=== PATIENT | male | born 1965 | race Caucasian/White ===

== ENCOUNTER 2016-07-21 10:21 | Emergency (ER) | payer OTHER ==
[2016-07-21 10:26] VITALS: RESP 16; TEMP 97.5; O2SAT 98
--- NOTE | 2016-07-21 10:46 | CPEKG ---
Heart Rate: 61 RR Interval: 984 P-R Interval: 164 QRSD Interval: 96 QT Interval: 408 QTC Interval: 411 P Orange: 65 QRS Orange: 37 T Wave Orange: 32 EKG Severity - NORMAL ECG - EKG Impression: SINUS RHYTHM Electronically Signed By: Bert Frank 21-Jul-2016 23:12:00
[2016-07-21] MEDS ORDERED: NS 1,000 ML IV ONE (10:47)
[2016-07-21 10:55] LABS: % IMMATURE GRANULYOCYTES 0.2 % (0.0-1.1); ABSOLUTE IMMATURE GRANULOCYTES 0.01 10^3/uL (0.00-0.10); ADD DIFF? NO; ADD MORPH? NO; ADD SCAN? NO; ATYPICAL LYMPHOCYTE FLAG 10 (0-99); FRAGMENT RBC FLAG 0 (0-99); HEMATOCRIT 44.9 % (40.0-51.0); HEMOGLOBIN 15.4 g/dL (13.7-17.5); LEFT SHIFT FLG 0 (0-99); LIPEMIA HEMOLYSIS FLAG 90 (0-99); MEAN CELL HEMOGLOBIN 31.8 pg (27.9-34.1); MEAN CELL HEMOGLOBIN CONCENTR. 34.3 g/dL (32.4-36.7); MEAN CELL VOLUME 92.6 fL (81.5-99.8); MEAN PLATELET VOLUME 11.2 fL (8.7-11.7); PLATELET CLUMPS FLAG 10 (0-99); PLATELET COUNT 204 10^3/uL (150-400); RED BLOOD CELL COUNT 4.85 10^6/uL (4.40-6.38); RED CELL DISTRIBUTION WIDTH 12.7 % (11.5-15.2)
--- NOTE | 2016-07-21 10:59 | EDPHY ---
H & P Stated Complaint: NAUSEA/FAINTED- STILL LIGHTHEADED HPI/ROS: CHIEF COMPLAINT: Syncope HISTORY OF PRESENT ILLNESS: patient was ambulating at work today when he notes the sudden onset of loss of conscious. He says he felt a little nauseated before happen, he remembers starting to fall and does not remember the exact details. He says he struck his head on the floor. there were several coworkers present. EMS was called. He was feeling much better by the time the EMS arrived and was wanting to refuse transport, but his coworkers recommended he come in. He has had no chest pain prior or post event. He had no shortness of breath. No recent illness. No history of cardiac disease or conduction delays. NO other associated complaints or modifying factors for this. He does have some mild "cloudy thought process," but no other complaints. REVIEW OF SYSTEMS: Ten systems reviewed and are negative unless otherwise noted in the HPI EXAMINATION General Appearance: Alert, no distress Head: normocephalic, atraumatic Eyes: Pupils equal and round, no conjunctival pallor or injection . No nystagmus. EOMs intact. ENT, Mouth: Mucous membranes moist . Uvula midline. NO erythema or edema. Neck: Normal inspection, supple, non-tender . Painless range of motion all planes. Respiratory: Lungs are clear to auscultation . No wheezing, rhonchi or crackles. Cardiovascular: Regular rate and rhythm . No murmur. Pulses intact distally with symmetric radial, DP and PT pulses are 2+. Gastrointestinal: Abdomen is soft and nontender Back: non-tender, no bony abnormalities Neurological: A&O, Cranial nerves 2-12 grossly intact. Strength is 5/5 in all limbs. Sensory intact. NO focal deficits. NO pronator drift. No dysmetria. Skin: Warm and dry, no rash Extremities: Nontender, no pedal edema Psychiatric: Mood and affect normal DIFFERENTIAL DIAGNOSES: Including but not limited to Vasovagal syncope, syncope, dehydration conduction delay MDM: 10:55 a.m. 1st episode of syncope for the patient. THis occurred just prior to arrival. SInce then he has had no recurrence. He has had no headache, confusion, chest pain or shortness of breath. NO incontinence or injury to the tongue. No history of seizure disorder. No history of coronary artery or cardiac diagnosis. His vital signs are within normal limits and he is feeling much better at this time. Laboratory studies are pending. EKG is unremarkable with normal sinus rhythm. 12:45 p.m. syncope without any subsequent syncope. Laboratory studies normal. He has ambulated twice in the emergency department without complication. Discharged home with follow up with his primary care physician. PAtient is comfortable with this plan and discharged home stable condition, ambulatory without assistance. EKG: Interpreted by Dr. Rebolledo SUPERVISION: Independently evaluated Source: Patient, Family Exam Limitations: No limitations - Personal History Current Tetanus/Diphtheria Vaccine: Unsure Current Tetanus Diphtheria and Acellular Pertussis (TDAP): Unsure - Medical/Surgical History Hx Asthma: No Hx Chronic Respiratory Disease: No Hx Diabetes: No Hx Cardiac Disease: No Hx Renal Disease: No Hx Cirrhosis: No Hx Alcoholism: No Hx HIV/AIDS: No Hx Splenectomy or Spleen Trauma: No Other PMH: seasonal allergies, melanoma removed lt arm - Social History Smoking Status: Never smoked Constitutional: Initial Vital Signs Temperature (C) 97.5 F 07/21/16 10:23 Heart Rate 67 07/21/16 10:23 Respiratory Rate 16 07/21/16 10:23 Blood Pressure 123/82 H 07/21/16 10:23 O2 Sat (%) 98 07/21/16 10:23 O2 Delivery Mode Room Air Allergies/Adverse Reactions: No Known Allergies Allergy (Unverified 06/17/13 10:14) Home Medications: Medication Instructions Recorded NK [No Known Home Meds] 07/21/16 Medical Decision Making - Data Points Laboratory Results: Laboratory Results 07/21/16 10:42 07/21/16 10:42 07/21/16 07/21/16 07/21/16 10:42 10:42 10:42 WBC 5.98 10^3/uL 10^3/uL (3.80-9.50) RBC 4.85 10^6/uL 10^6/uL (4.40-6.38) Hgb 15.4 g/dL g/dL (13.7-17.5) Hct 44.9 % % (40.0-51.0) MCV 92.6 fL fL (81.5-99.8) MCH 31.8 pg pg (27.9-34.1) MCHC 34.3 g/dL g/dL (32.4-36.7) RDW 12.7 % % (11.5-15.2) Plt Count 204 10^3/uL 10^3/uL (150-400) MPV 11.2 fL fL (8.7-11.7) Neut % (Auto) 69.0 % % (39.3-74.2) Lymph % (Auto) 22.6 % % (15.0-45.0) [place] % (Auto) 6.5 % % (4.5-13.0) Eos % (Auto) 1.0 % % (0.6-7.6) Baso % (Auto) 0.7 % % (0.3-1.7) Nucleat RBC Rel Count 0.0 % % (0.0-0.2) Absolute Neuts (auto) 4.13 10^3/uL 10^3/uL (1.70-6.50) Absolute Lymphs (auto) 1.35 10^3/uL 10^3/uL (1.00-3.00) Absolute Monos (auto) 0.39 10^3/uL 10^3/uL (0.30-0.80) Absolute Eos (auto) 0.06 10^3/uL 10^3/uL (0.03-0.40) Absolute Basos (auto) 0.04 10^3/uL 10^3/uL (0.02-0.10) Absolute Nucleated RBC 0.00 10^3/uL 10^3/uL (0-0.01) Immature Gran % 0.2 % % (0.0-1.1) Immature Gran # 0.01 10^3/uL 10^3/uL (0.00-0.10) PT 13.0 SEC SEC (12.0-15.0) INR 0.99 (0.83-1.16) APTT 25.8 SEC SEC (23.0-38.0) Sodium 138 mEq/L mEq/L (134-144) Potassium 4.4 mEq/L mEq/L (3.5-5.2) Chloride 104 mEq/L mEq/L (97-110) Carbon Dioxide 25 mEq/l mEq/l (22-31) Anion Gap 9 mEq/L mEq/L (8-16) BUN 20 mg/dL mg/dL (7-23) Creatinine 1.2 mg/dL mg/dL (0.7-1.3) Estimated GFR > 60 Glucose 90 mg/dL mg/dL (70-100) Calcium 9.5 mg/dL mg/dL (8.5-10.4) Troponin I < 0.012 ng/mL ng/mL (0-0.034) Medications Given: Discontinued Medications Sodium Chloride (Ns) 1,000 mls @ 0 mls/hr IV ONCE ONE PRN Reason: Wide Open Stop: 07/21/16 10:48 Last Admin: 07/21/16 10:49 Dose: 1,000 mls Departure - Departure Disposition: Home, Routine, Self-Care Clinical Impression: Syncope and collapse Condition: Good Instructions: Syncope (ED) Additional Instructions: Follow-up with primary care physician to discuss cardiology referral. Return to the ER for return of syncope Referrals: Kelle Calles, PAC [Primary Care Provider] - As per Instructions
[2016-07-21 11:03] LABS: INR 0.99 (0.83-1.16)
[2016-07-21 11:04] LABS: APTT 25.8 SEC (23.0-38.0)
[2016-07-21 11:09] LABS: ANION GAP 9 mEq/L (8-16); CALCIUM 9.5 mg/dL (8.5-10.4); CARBON DIOXIDE 25 mEq/l (22-31); CHLORIDE 104 mEq/L (97-110); CREATININE 1.2 mg/dL (0.7-1.3); GLOMERULAR FILTRATION RATE > 60; GLUCOSE 90 mg/dL (70-100); POTASSIUM 4.4 mEq/L (3.5-5.2); SODIUM 138 mEq/L (134-144)
[2016-07-21 11:20] LABS: TROPONIN I < 0.012 ng/mL (0-0.034)
[2016-07-21 11:56] VITALS: PULSE 72
[2016-07-21 12:51] VITALS: BP 118/83
== END 2016-07-21 12:52 | disposition home or self-care (01) ==
DX: R55 Syncope and collapse (principal)